=== PATIENT | female | born 1945 | race Caucasian/White ===

== ENCOUNTER → 2018-10-22 | Outpatient (CLI) | payer OTHER | LOC: CAT 12:31 | DX: K80.20 Calculus of gallbladder without cholecystitis without obstruction (principal); K56.7 Ileus, unspecified; I70.0 Atherosclerosis of aorta; M47.816 Spondylosis without myelopathy or radiculopathy, lumbar region; M41.86 Other forms of scoliosis, lumbar region ==

== ENCOUNTER → 2018-11-07 | Outpatient (CLI) | payer OTHER ==
[~2018-11-07] MED LIST: ALEVE220 M1 PO
== END ==
LOC: RAD 10:12
DX: J84.10 Pulmonary fibrosis, unspecified (principal); R91.8 Other nonspecific abnormal finding of lung field; M51.34 Other intervertebral disc degeneration, thoracic region; I70.0 Atherosclerosis of aorta; D71 Functional disorders of polymorphonuclear neutrophils

== ENCOUNTER 2018-11-08 10:13 | Observation (INO) | payer OTHER ==
[~2018-11-08] VITALS: Ht 157.5 cm; Wt 42.2 kg
--- NOTE | ~2018-11-08 | HC ---
[facility] [place] [address] CONSULTATION Name: EDI GARBER Room #: 434-P [facility] Valery Arroyo#: [id number] Admission: 11/08/18 Attend Phys: Wing Macias MD Discharge: 11/09/18 Date of : 43 Report #: [id number] THIS REPORT FOR: //name// CC: Raul Macias DATE OF SERVICE: 11/09/2018 REASON FOR CONSULTATION: Urinary retention. HISTORY OF PRESENT ILLNESS: The patient is a 73-year-old female who is a patient of Dr. Gallito Clay. She was admitted for abdominal pain. She was diagnosed with chronic cholecystitis with cholelithiasis and underwent a laparoscopic cholecystectomy yesterday afternoon by Dr. Macias. I was consulted this morning for difficulty with urinary retention. Nursing staff has reported they have bladder scanned her twice over the night and this morning with residual urine amounts of 375-500 mL of urine. So far, she was only able to urinate about 100 mL while up on the commode this morning. She is resting comfortably in bed and eating breakfast. PAST MEDICAL HISTORY: Noncontributory. PAST SURGICAL HISTORY: None. FAMILY HISTORY: Noncontributory. SOCIAL HISTORY: She lives at home alone. She is . MEDICATIONS: None. ALLERGIES: PENICILLIN. REVIEW OF SYSTEMS: She denies headache, chest pain, shortness of breath, abdominal pain, nausea, vomiting, diarrhea, constipation, dysuria, syncope. OBJECTIVE: VITAL SIGNS: Temperature 36.4, pulse 74, respirations 18, blood pressure 103/63, O2 sat 100% on room air. GENERAL: She is awake and alert, in no distress. HEAD, NECK: Unremarkable. LUNGS: Clear. HEART: Regular. ABDOMEN: Soft, normoactive bowel sounds. No rebound or guarding. EXTREMITIES: No cyanosis, clubbing or edema. NEUROLOGIC: Cranial nerves intact. PSYCHIATRIC: She is alert and oriented. Global strength intact. [facility] [address] [place] [address] CONSULTATION Name: EDI GARBER PHILLIPS Room #: [address] [place] [address].#: [id number] Admission: 11/08/18 Attend Phys: Wing Macias MD Discharge: 11/09/18 Date of : 43 Report #: [id number] LABORATORY DATA: Reviewed. Hemoglobin is 14. ASSESSMENT: 1. Acute urinary retention. 2. Acute cholecystitis. 3. Status post laparoscopic cholecystectomy. PLAN: For now, I will have the nursing staff get her up to walk the halls and perform bladder scan with intermittent catheterization as needed. We may need to observe her for the better part of today and hopefully this is just a post-anesthesia mild complication. We will follow her stay with you as needed. By: 1006 41 Stefano Araya MD /nt
[2018-11-08 10:50] VITALS: BP 119/68
[2018-11-08 11:02] LABS: HEMATOCRIT 43.2 % (37.0-47.0); HEMOGLOBIN 14.6 gm/dL (12.0-15.0)
[2018-11-08 14:36] LABS: BE(vivo) -5.4 mmol/L (-2 to +3); HCO3 22.4 mmol/L (22.0-26.0); PCO2 54.1 mmHg (35.0-45.0); PO2 63.5 mmHg (80.0-100.0); pH 7.235 (7.360-7.450)
[2018-11-08 16:25] VITALS: BP 100/57
[2018-11-08 19:23] VITALS: BP 107/52
--- NOTE | 2018-11-08 19:40 | NUR ---
Received pt from post op, 4 lap sites clean dry and intact. Currently on clear liquids and is tolerating well. IV fluids initiated , admissions requirements done. Bilateral SCD put on. VS stable , POC followed, no signs or verbalizations on distress have been noted.
[2018-11-08 23:12] VITALS: BP 98/55
--- NOTE | 2018-11-09 02:16 | NUR ---
ASSUMED CARE AROUND 1800. AXOX4. S/P LAP ALISA. LAP SITE X 4 WITH BANDAGES. CDI. IN THE BEGINNING OF THE SHIFT, PT HAS NOT VOIDED SINCE THE SURGERY. PT TRIED TO VOID, NOT SUCCESSFUL, BLADDER SCANNED PT RETAINING 260-330. CALLED AND OBTAINED ORDER FOR FLOMAX AND STRAIGHT CATH PRN. SINCE FLOMAX, PT VOIDED ALMOST EVERY HOUR BUT OP ONLY 100CC AT A TIME. AROUND 0130, DECIDED TO SCAN THE PT AGAIN AND PT WAS RETAINING 615CC. PER MD ORDER, PROVDED STRAIGH CATHETERIZATION AND DRAINED 450CC CLEAR YELLOW URINE. PT TOLERATED PROCEDURE VERY WELL. PT TOLERATED CLEAR LIQUIDS FAIRLY WELL AND WILL ADVANCE DIET IN AM PER MD ORDER. NO S/S ACUTE DISTRESS NOTED OR REPORTED AT THIS TIME. WILL CONT TO MONITOR FOR ANY CHANGES IN CONDITION.
[2018-11-09 03:45] VITALS: BP 103/63
--- NOTE | 2018-11-09 12:04 | O ---
[facility] [place] [address] OPERATIVE REPORT Name: EDI GARBER Room #: 434-P [facility] M.R.#: [id number] Admission: 11/08/18 Attend Phys: Wing Macias MD Discharge: Date of : 43 Report #: [id number] THIS REPORT FOR: //name// CC: Gallito Macias DATE OF SERVICE: 11/08/2018 PREOPERATIVE DIAGNOSIS: Chronic cholecystitis with cholelithiasis. POSTOPERATIVE DIAGNOSIS: Chronic cholecystitis with cholelithiasis. PROCEDURES PERFORMED: Laparoscopic cholecystectomy with cholangiogram. SURGEON: Wing Macias MD ANESTHESIA: General anesthesia. COMPLICATIONS: None. ESTIMATED BLOOD LOSS: 5 mL. DESCRIPTION OF PROCEDURE: The patient under general anesthesia, abdomen was prepped and draped in sterile fashion. IV antibiotic was administered. Timeout was performed. A 0.25% Marcaine was used to anesthetize the skin infraumbilically, 2 cm incision was made infraumbilically. Fascia was identified. The fascia was grasped with hemostat. The fascia was then opened under visualization. 0 Vicryl suture was placed on the fascia edges for retraction. With the abdominal wall lifted anteriorly, Veress needle was then placed through the peritoneum. Abdominal cavity was insufflated with CO2. After creating pneumoperitoneum pressure of 15, 11 mm trocar was placed into the pneumoperitoneum without difficulty. The 11 mm trocar was placed under visualization. Laparoscopic evaluation showed liver, stomach, bowel to be normal. The appendix was able to be visualized also, was normal. Two 5 mm trocars were placed in the right upper quadrant and a 5 mm trocar placed in the epigastrium. Gallbladder was lifted up and there is quite a bit of adhesion to the fat to the gallbladder. The adhesions were taken down. The patient is fairly thin and the view was easily identified. Common duct was able to be partially visualized under the peritoneum. Cystic artery was overlapping the duct. The artery was isolated without difficulty. The artery was clipped x 2 proximally and then 1 distally and then divided. The cystic duct was then easily isolated. Cystic duct is slightly on the small side. A clip was placed in junction of cystic duct to the gallbladder. Opening was made in the cystic duct. Cholangiogram catheter was placed. Fluoroscopic cholangiogram was obtained. Common duct filled out well, no filling defect was seen. The [address] [address] OPERATIVE REPORT Name: EDI GARBER Room #: 434-P [facility] Valery Arroyo#: [id number] Admission: 11/08/18 Attend Phys: Wing Macias MD Discharge: Date of : 43 Report #: [id number] cholangiogram catheter was identified in the cystic duct. No harm to the common duct. The cholangiogram catheter was then removed. The proximal part of cystic duct was then clipped x 2. The cystic duct was then divided. There was a small vein that was clipped. A posterior lateral artery was also identified, this was clipped x 2. Gallbladder was free from the liver bed without difficulty. The gallbladder was placed in a specimen bag. Gallbladder was noted to be elongated. The gallbladder was full of stones. The stones are all uniform faceted appearing, measuring about 8 mm in size. The gallbladder was placed in a specimen bag. The bag was brought out through the infraumbilical 11 mm trocar. The gallbladder was partially brought out through the bag and then opened. The stones were extracted. Once the stone was mostly removed, the gallbladder then came out along with the bag. There was no spillage of stone. The trocar was then replaced. Irrigation was performed. Liver bed was hemostatic. Clips were intact. Irrigation was performed. Irrigation was aspirated out. Trocars then removed. CO2 was also evacuated as much as possible. The infraumbilical fascia defect was closed with [id number] 0 Vicryl. Skin was irrigated, closed with 5-0 PDS. Steri-Strip, Band-Aids applied. The patient tolerated the procedure well. <ELECTRONICALLY SIGNED> By: Wing Macias MD 11/09/18 1204 2213 2222 Wing Macias MD /nt
--- NOTE | 2018-11-09 12:04 | H ---
[facility] [place] [address] HISTORY AND PHYSICAL Name: EDI GARBER Room #: 434-P [facility] M.RYudith#: [id number] Admission: 11/08/18 Attend Phys: Wing Macias MD Discharge: Date of : 43 Report #: [id number] THIS REPORT FOR: //name// CC: Gallito Macias DATE OF SERVICE: 11/08/2018 PREOPERATIVE DIAGNOSIS: Cholecystitis with cholelithiasis. HISTORY OF PRESENT ILLNESS: The patient is a 73-year-old who is here for laparoscopic cholecystectomy. The patient had a pain in her right abdomen going towards her back. The patient has a known history of left kidney stone that required removal. The patient said that the pain on the right was different than the kidney stone pain. The patient complains of pain and also very disturbing diarrhea for the last several weeks. She says everything she eats goes through her quickly. The pain and diarrhea seems to be aggravated by eating. No specific food. No history of bloating, gas, nausea or vomiting. The patient has lost about 10 pounds because of her difficulty with eating. She thinks that her food was not being digested. The patient did have a KUB on 10/16/2018, which shows some gaseous distention, a picture of an ileus. CT scan was performed and the patient was found to have some consolidation of her left lower lobe. The patient was also found to have gallstones. No mention of gallbladder wall thickening or ductal dilatation. Liver function tests are normal. She has an appointment to see Dr. Vin Burgos today. Because of her digestive issue, the patient wants to go ahead with gallbladder surgery. I did not think that her gallbladder is likely the source of her pain and diarrhea. It should improve after surgery but difficult to guarantee her that. PAST MEDICAL HISTORY: The patient denies being on any medications. ALLERGIES: THE PATIENT IS ALLERGIC TO PENICILLIN. PAST SURGICAL HISTORY: Kidney stone removal. FAMILY HISTORY: Grandmother had gallstones. Father had an aneurysm. Mother of heart failure. Sister with Alzheimer disease. SOCIAL HISTORY: The patient is retired. Does not smoke, rarely drinks. REVIEW OF SYSTEMS: No chest pain, shortness of breath, palpitation. No muscle weakness, numbness. PHYSICAL EXAMINATION: GENERAL: The patient is a thin female in no acute distress. [facility] [address] [place] [address] HISTORY AND PHYSICAL Name: EDI GARBER Room #: 434-P [facility] M.R.#: [id number] Admission: 11/08/18 Attend Phys: Wing Macias MD Discharge: Date of : 43 Report #: [id number] HEENT: Pupils react to light. Extraocular muscles are intact. Oropharynx is clear. NECK: Soft and supple, no masses, no JVD. LUNGS: Clear to auscultation. HEART: Regular rate and rhythm. No murmur or gallop. ABDOMEN: She is mildly tender in the right upper quadrant and right epigastric area. No mass, guarding or rigidity. The patient is not jaundiced. The patient moves all extremities well and has no cyanosis, clubbing or edema in the extremity. IMPRESSION: The patient is a 73-year-old who has complained of right upper abdominal pain and diarrhea. The patient does have gallstones found on CT scan. No kidney stone on the right side. The patient has a spot on her lung that is being evaluated. The patient would like to proceed with gallbladder surgery. This is a more urgent for her. She is losing weight. She is having difficulty eating. The patient is recommended to undergo laparoscopic cholecystectomy. Risk of procedure including bleeding, infection, common bile duct injury, duct injury was discussed. These are all very low risk. The patient understands the procedure and wishes to proceed. <ELECTRONICALLY SIGNED> By: Wing Macias MD 11/09/18 1204 2207 2229 Wing Macias MD /nt
--- NOTE | 2018-11-09 12:21 | NUR ---
PT ADMITTED RELATED TO [facility]. CM REVIEWED CHART AND SPOKE WITH CARE TEAM. CM MET WITH PT AT BEDSIDE THIS DAY. PT IS A&O X4. CM ROLE INTRODUCED. PT INDICATED SHE LIVES IN A DUPLEX ALONE WITH NO STEPS TO ENTER BUT A FULL FLIGHT SHE USES INSIDE. 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 PT INDICATED NO DME OR HH HX. PT PLANS TO DC HOME ONCE MEDICALLY STABLE WITH NO NEEDS. CARE TEAM INDICATED THAT PT IS TO DC THIS DAY WITH NO NEEDS. CASE CLOSED.
[2018-11-09 13:59] VITALS: BP 89/54
--- NOTE | 2018-11-09 14:50 | NUR ---
Assumed pt care this am, lap sites clear dry and intact. Was advised by the night nurse that pt had bee retaining urine, Bladder scan done 345 cc, straight cat's out put is 350cc. Pt is able to void in small amounts. Night nurse did mention that pt's sister has retentions problems and is doing staright cats on herslf. Informed Dr. Macias of the familial history and the confusion pt experienced thil the morning d/t narco. Seen by Dr. Araya, pt ambulated the halls and only urinated in the toilet 100cc. DC orders given by Dr. Macias pt is informed. Pt had 2 large loose bowel movements, and was very concerned since this was the main reason why she came in. Inlformed Dr. Macias still ok to DC and to advice pt to observe and to call is this persists.
--- NOTE | 2018-11-09 15:08 | EKG ---
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
[2018-11-09 15:17] VITALS: BP 89/54
--- NOTE | 2018-11-12 16:06 | PATH ---
[facility] [address] [place] [address] PATHOLOGY RPT PROCEDURE Name: MONET GARBER Room #: 434-P [facility] Valery Arroyo#: [id number] Admission: 11/08/18 Date of : 43 Discharge: 11/09/18 Report #: [id number] Path Case #: [id number] [facility] Accession Number: [id number] . 01 Material submitted: . gallbladder - GALLBLADDER . 01 Clinical history: . Chronic cholecystitis with cholelithiasis . 02 Diagnosis: Gallbladder, cholecystectomy: - Mild chronic cholecystitis. - Cholelithiasis. . (IUV:mml; 11/12/2018) QL 11/12/2018 1235 Local . 02 Electronically signed: . Monica Merino MD, Pathologist NPI- [id number] . 01 Gross description: . The specimen is received in formalin, labeled "Monet Garber, gallbladder", is a previously opened gallbladder measuring 8.0 cm in length and 1.8 cm in maximum diameter with a wrinkled and a herndon-yellow serosa. The cystic duct is patent. The mucosa is red-herndon and with no cholesterolosis. The wall is 0.1 cm in average thickness. Within the container there are multiple multifaceted dark green-yellow calculi measuring 4.5 x 3.7 x 1.0 cm in aggregate. Representatively submitted in A1. ([facility]; 11/08/2018) [facility] 11/08/[address] [place] [address] . 02 Pathologist provided ICD-10: K80.10 . 02 CPT . 750543 Specimen Comment: A courtesy copy of this report has been sent to Specimen Comment: [phone], . Specimen Comment: Report sent to / DR PANDA Performed at: [address], [place] [id number] MD Berlin Vasquez MD Phone: [phone] Performed at: [address] [address] PATHOLOGY RPT PROCEDURE Name: MONET GARBER JAIN Room #: 434-P JOSE Arroyo#: [id number] Admission: 11/08/18 Date of : 43 Discharge: 11/09/18 Report #: [id number] Path Case #: [id number] [address] [place], [place] [id number] MD Monica Merino MD Phone: [phone]
== END 2018-11-09 16:52 | disposition home or self-care (01) ==
LOC: OR 10:13 → 4S 16:00 → OR 16:24 → ENTRNSPT 11-09 16:13 → 4S 11-09 16:52
PROVIDERS: ADMIT Surgery
DX: K80.10 Calculus of gallbladder with chronic cholecystitis without obstruction (principal); R19.7 Diarrhea, unspecified; R33.9 Retention of urine, unspecified
CPT/HCPCS: 50010; 50101; 50411; 50555; 50558; 51489; 53307; 53310; 53312; 55245; 55317; 56462; 56525; 56526; 62110; 62900; 70005

== ENCOUNTER → 2018-11-30 | Outpatient (CLI) | payer OTHER | LOC: CAT 10:56 | DX: J98.4 Other disorders of lung (principal); R91.8 Other nonspecific abnormal finding of lung field; I25.10 Atherosclerotic heart disease of native coronary artery without angina pectoris; J98.11 Atelectasis ==